=== PATIENT | male | born 1990 ===

== ENCOUNTER 2022-09-28 14:43 | Emergency (ER) | payer SELFPAY ==
[~2022-09-28] VITALS: Ht 180.3 cm; Wt 98.5 kg
[2022-09-28 14:44] VITALS: BP 144/72; TEMP 98.7; O2SAT 98
[2022-09-28] MEDS ORDERED: DULC5TAB PO (14:55)
[2022-09-28] MEDS ORDERED: OXYC-517 PO (14:55)
[2022-09-28] MEDS ORDERED: GABA-283 PO (14:55)
== END 2022-09-28 17:51 | disposition left against medical advice (07) ==
LOC: M ED 14:43
DX: Z53.21 Procedure and treatment not carried out due to patient leaving prior to being seen by health care provider (principal)